=== PATIENT | male | born 1985 | race Caucasian/White ===

== ENCOUNTER 2018-01-29 17:56 | Emergency (ER) | payer MEDICAID ==
[~2018-01-29] VITALS: Ht 182.9 cm; Wt 75.0 kg
[2018-01-29 17:58] VITALS: Ht 182.9 cm; Wt 75.0 kg
[2018-01-29] MEDS ORDERED: VIBRAMYCIN 100100 MG PO (19:31)
[2018-01-29] MEDS ORDERED: MUCINEX DM ER1 EAC1 PO (19:31)
[2018-01-29] MEDS ORDERED: MEDROL DOSE PACK4 MG PO (19:31)
[2018-01-29 19:59] VITALS: BP 132/78
== END 2018-01-29 20:00 | disposition home or self-care (01) ==
LOC: D.ER 17:56
DX: J06.9 Acute upper respiratory infection, unspecified (principal); J40 Bronchitis, not specified as acute or chronic; R09.89 Other specified symptoms and signs involving the circulatory and respiratory systems; R50.9 Fever, unspecified; Z89.512 Acquired absence of left leg below knee; F17.200 Nicotine dependence, unspecified, uncomplicated

== ENCOUNTER 2018-03-05 16:17 | Emergency (ER) | payer MEDICAID ==
[~2018-03-05] VITALS: Ht 182.9 cm; Wt 75.0 kg
[~2018-03-05 16:17] MED LIST: MEDROL DOSE PACK4 MG PO; MUCINEX DM ER1 EAC1 PO; VIBRAMYCIN 100100 MG PO
[2018-03-05 16:28] VITALS: Ht 182.9 cm; Wt 75.0 kg
[2018-03-05] MEDS ORDERED: PHENERGAN DM SYR5 ML PO (19:05)
[2018-03-05] MEDS ORDERED: VIBRAMYCIN 100100 MG PO (19:05)
[2018-03-05] MEDS ORDERED: BACLOFEN20 M1 PO (19:07)
[2018-03-05 20:18] VITALS: BP 118/76
== END 2018-03-05 20:19 | disposition home or self-care (01) ==
LOC: D.ER 16:17
DX: J40 Bronchitis, not specified as acute or chronic (principal); L03.116 Cellulitis of left lower limb; Z89.512 Acquired absence of left leg below knee; R09.89 Other specified symptoms and signs involving the circulatory and respiratory systems; F17.200 Nicotine dependence, unspecified, uncomplicated

== ENCOUNTER 2018-06-16 12:48 | Emergency (ER) | payer MEDICAID ==
[~2018-06-16] VITALS: Ht 182.9 cm; Wt 70.0 kg
[~2018-06-16 12:48] MED LIST changes: +BACLOFEN20 M1 PO; +PHENERGAN DM SYR5 ML PO
[2018-06-16 12:56] VITALS: BP 111/63; Ht 182.9 cm; Wt 70.0 kg
[2018-06-16] MEDS ORDERED: MEDROL DOSE PACK4 MG PO (13:36)
[2018-06-16] MEDS ORDERED: AMOXICILLIN875 MG PO (13:36)
== END 2018-06-16 13:56 | disposition home or self-care (01) ==
LOC: D.ER 12:48
DX: J02.9 Acute pharyngitis, unspecified (principal); Z89.512 Acquired absence of left leg below knee; F17.200 Nicotine dependence, unspecified, uncomplicated

== ENCOUNTER 2019-10-31 08:47 | Emergency (ER) | payer MEDICAID ==
[~2019-10-31] VITALS: Ht 182.9 cm; Wt 80.9 kg
[~2019-10-31 08:47] MED LIST changes: +AMOXICILLIN875 MG PO
[2019-10-31 08:57] VITALS: Ht 182.9 cm; Wt 80.9 kg
[2019-10-31] MEDS ORDERED: ULTRAM50 MG PO (10:11)
[2019-10-31 10:30] VITALS: BP 122/80
== END 2019-10-31 10:31 | disposition home or self-care (01) ==
LOC: D.ER 08:47
DX: S60.221A Contusion of right hand, initial encounter (principal); W22.8XXA Striking against or struck by other objects, initial encounter; Y93.9 Activity, unspecified; Y92.9 Unspecified place or not applicable